=== PATIENT | female | born 1985 | race Caucasian/White ===

== ENCOUNTER 2018-09-05 10:24 | Emergency (ER) | payer SELFPAY ==
[2018-09-05] MEDS ORDERED: HYDROcodone 10MG/APAP 325MG 1 EA TAB PO ONE (10:47)
[2018-09-05] MEDS ORDERED: CLINDAMYCIN IV 900MG 900 MG in PREMIX BAG 1 BAG IVPB ONE (10:47)
[2018-09-05] MEDS ORDERED: CLINDAMYCIN IV 900MG 50 ML IVPB ONE (10:50)
--- NOTE | 2018-09-05 11:00 | ED.PDOC ---
History of Present Illness - General Chief Complaint: Skin/Abrasion/Tear Stated Complaint: hand pain/abscess Time Seen by Provider: 09/05/18 10:46 - History of Present Illness Initial Comments: TWO DAY HISTORY OF RIGHT HANDED PAIN. SHE VOICES THAT SHE SHE HAS HAD A CYSTIC LESION ON THE VOLAR ASPECT OF THE RIGHT HAND FOR MANY YEARS NO IT HAS REDNESS AND PAIN TO THE RIGHT HAND. DENIES ANY FEVER AND VOICES NO MANIPULATION TO THE AREA. Timing/Duration: other - TWO DAYS Severity: moderate Worsening Factors: movement Associated Symptoms: denies symptoms Allergies/Adverse Reactions: Allergies Hydrocodone Adverse Reaction (Verified 09/05/18 10:40) Nausea Home Medications: Ambulatory Orders Mirena 1 applic VAG ONCE 03/28/16 Clindamycin HCl [Cleocin] 300 mg PO Q6H 10 Days capsule 09/05/18 Tramadol HCl 50 mg PO Q6HRS #20 tab 09/05/18 Review of Systems - Review of Systems Constitutional: States: no symptoms reported EENTM: States: no symptoms reported Respiratory: States: no symptoms reported Cardiology: States: no symptoms reported Gastrointestinal/Abdominal: States: no symptoms reported Genitourinary: States: no symptoms reported Musculoskeletal: States: other - RIGHT HAND PAIN Skin: States: lesions Neurological: States: no symptoms reported Endocrine: States: no symptoms reported Hematologic/Lymphatic: States: no symptoms reported Past Medical History (General) - Patient Medical History Hx Seizures: No Hx Stroke: No Hx Dementia: No Hx Asthma: No Hx of COPD: No Hx Cardiac Disorders: No Hx Congestive Heart Failure: No Hx Pacemaker: No Hx Hypertension: No Hx Thyroid Disease: No Hx Diabetes: No Hx Gastroesophageal Reflux: No Hx Renal Disease: No Hx Cancer: No Hx of HIV: No Hx Hepatitis C: No Hx MRSA: No MRSA Source:: Wound Surgical History: cholecystectomy - Vaccination History Hx Tetanus, Diphtheria Vaccination: No Hx Influenza Vaccination: No Hx Pneumococcal Vaccination: No - Social History Hx Tobacco Use: Yes Hx Chewing Tobacco Use: No Hx Alcohol Use: No Hx Substance Use: No Hx Substance Use Treatment: No Hx Depression: No - Female History Patient is a Female of Child Bearing Age (10 -59 yrs old): Yes Patient : - patient denies - Triage Comment ED Triage Comment: Mirena control Family Medical History - Family History Mother Family History: No Known Physical Exam - Physical Exam General Appearance: Alert, Obvious distress, Well Developed, Well Nourished Eye Exam: bilateral normal Ears, Nose, Throat: hearing grossly normal Neck: non-tender Respiratory: chest non-tender Cardiovascular/Chest: normal peripheral pulses, regular rate, rhythm, no edema, no gallop, no JVD, no murmur Peripheral Pulses: radial,right: 2+, radial,left: 2+ Gastrointestinal/Abdominal: normal bowel sounds, non tender Rectal Exam: deferred Extremity: other - THE RIGHT HAND, VOLAR AND MEDIAL ASPECT OF THE HAND HAD REDNESS AND INDURATION. THERE IS MILD SWELLING AND PAIN UPON MPOVMENT OF THE RIGHT FIFTH DIGIT. Departure - Departure Clinical Impression: Abscess Cellulitis Qualifiers: Site of cellulitis of extremity: upper extremity Laterality: right Time of Disposition: 11:04 Disposition: Discharge to Home or Self Care Departure Forms: ED Discharge - Pt. Copy, Patient Portal Self Enrollment Instructions: DI for Abrasion, Cellulitis (Skin Infection), Adult (DC) Diet: resume usual diet Referrals: Tracee Overton, FRANCIS[place] [Primary Care Provider] - 1-2 Weeks Prescriptions: Tramadol HCl 50 mg PO Q6HRS #20 tab Clindamycin HCl [Cleocin] 300 mg PO Q6H 10 Days capsule Home Medications: Ambulatory Orders Mirena 1 applic VAG ONCE 03/28/16 Clindamycin HCl [Cleocin] 300 mg PO Q6H 10 Days capsule 09/05/18 Tramadol HCl 50 mg PO Q6HRS #20 tab 09/05/18 Additional Instructions: CALL DR. BARRETO TOMORROW MORNING. I WOULD LIKE FOR HIM TO SEE YOU THIS WEEK. IF THE HAND IS UNIMPROVED WITHIN 48-72 HRS PLEASE RETURN TO THE ER. APPLY MOIST WARM COMPRESSES I HAVE DIRECTED.
[2018-09-05 11:04] VITALS: O2SAT 100
[2018-09-05 12:02] VITALS: BP 137/82; TEMP 98.2
== END 2018-09-05 12:02 | disposition home or self-care (01) ==
LOC: ER 10:24
DX: L02.413 Cutaneous abscess of right upper limb (principal); Z87.891 Personal history of nicotine dependence; Z88.5 Allergy status to narcotic agent